=== PATIENT | female | born 1965 | race Caucasian/White ===

== ENCOUNTER 2016-11-16 15:57 | Emergency (ER) | payer MEDICAID, OTHER ==
[2016-11-16] MEDS ORDERED: Sodium Chloride 0.9% 1,000 ML IV ONE (16:09)
--- NOTE | 2016-11-16 16:09 | EDM.PDOC ---
ED HPI Trauma - General Chief Complaint: Lower Extremity Injury/Pain Stated Complaint: PT STATED SHE IS HAVING A STROKE Time Seen by Provider: 11/16/16 16:02 - History of Present Illness INITIAL COMMENTS - FREE TEXT/NARRATIVE: HISTORY AND PHYSICAL: History of present illness: Patient 51-year-old white female who presents with concern of general malaise they say she doesn't feel well and complains of multiple body aches and other nonspecific symptoms no reported fever chills nausea vomiting or other concerns she does acknowledge using alcohol recently because she was angry she denies suicidal or homicidal ideation Review of systems: As per history of present illness and below otherwise all systems reviewed and negative. Past medical history: As per history of present illness and as reviewed below otherwise noncontributory. Surgical history: As per history of present illness and as reviewed below otherwise noncontributory. Social history: No reported history of drug or alcohol abuse. Family history: As per history of present illness and as reviewed below otherwise noncontributory. Physical exam: HEENT: Atraumatic, normocephalic, pupils reactive, negative for conjunctival pallor or scleral icterus, mucous membranes moist, throat clear, neck supple, nontender, trachea midline. Lungs: Clear to auscultation, breath sounds equal bilaterally, chest nontender. Heart: S1S2, regular, negative for clicks, rubs, or JVD. Abdomen: Soft, nondistended, nontender. Negative for masses or hepatosplenomegaly. Negative for costovertebral tenderness. Pelvis: Stable nontender. Genitourinary: Deferred. Rectal: Deferred. Extremities: Atraumatic, negative for cords or calf pain. Neurovascular unremarkable. Neuro: Awake, alert, oriented. Cranial nerves II through XII unremarkable. Cerebellum unremarkable. Motor and sensory unremarkable throughout. Exam nonfocal. Diagnostics: CBC CMP troponin EtOH urine drug screen EKG CT brain chest x-ray Therapeutics: Normal saline 1 L bolus Impression: #1 general malaise #2 medical screening exam #3 rule out alcohol abuse Definitive disposition and diagnosis as appropriate pending reevaluation and review of above. Allergies/ADRs: Allergies thiamine (vitamin B1) [thiamine] Allergy (Verified 11/16/16 16:03) Redness Home Medications: Ambulatory Orders . [No Known Home Meds] 02/02/14 [Confirmed 09/01/15] Past Medical History - Past Health History Medical/Surgical History: Denies Medical/Surgical History Neurological History: Reports: Other (see below) Other Neuro History: CMT - Past Surgical History HEENT Surgical History: Reports: Tonsillectomy Other Musculoskeletal Surgeries/Procedures:: left foor surgery. right wrist surgery Social & Family History - Tobacco Use Smoking Status *Q: Current Every Day Smoker Years of Tobacco use: 37 Packs/Tins Daily: 0.5 Second Hand Smoke Exposure: Yes - Alcohol Use Days Per Week of Alcohol Use: 2 Number of Drinks Per Day: 3 Total Drinks Per Week: 6 - Recreational Drug Use Recreational Drug Use: No Review of Systems - Review of Systems Review Of Systems: ROS reveals no pertinent complaints other than HPI. Trauma Exam - Physical Exam Exam: See Below (See dictation) Course - Vital Signs Last Recorded V/S: Last Vital Signs Temp 36.6 C 11/16/16 16:10 Pulse 110 H 11/16/16 16:10 Resp 20 11/16/16 16:10 BP 148/60 H 11/16/16 16:10 Pulse Ox 97 11/16/16 16:10 - Orders/Labs/Meds Orders: Active Orders 24 hr Category Date Time Status EKG Documentation Completion [RC] STAT Care 11/16/16 16:03 Active COMPREHENSIVE METABOLIC PN,CMP [CHEM] Stat Lab 11/16/16 16:37 Received ETHANOL BLOOD MEDICAL [CHEM] Stat Lab 11/16/16 16:37 Received INR,PT,PROTHROMBIN TIME [COAG] Stat Lab 11/16/16 16:37 Received Sodium Chloride 0.9% [Normal Saline] 1,000 ml Med 11/16/16 16:09 Active IV STAT Medication Orders Sodium Chloride (Normal Saline) 1,000 mls @ 999 mls/hr IV STAT ONE Stop: 11/16/16 17:09 Last Admin: 11/16/16 16:34 Dose: 999 mls/hr Labs: Laboratory Tests 11/16/16 11/16/16 11/16/16 Range/Units 16:15 16:37 16:37 WBC 6.69 (4.0-11.0) K/uL RBC 4.61 (4.30-5.90) M/uL Hgb 14.2 (12.0-16.0) g/dL Hct 41.9 (36.0-46.0) % MCV 90.9 (80.0-98.0) fL MCH 30.8 (27.0-32.0) pg MCHC 33.9 (31.0-37.0) g/dL RDW Std Deviation 45.7 (28.0-62.0) fl RDW Coeff of Fani 14 (11.0-15.0) % Plt Count 252 (150-400) K/uL MPV 8.70 (7.40-12.00) fL Neut % (Auto) 60.7 (48.0-80.0) % Lymph % (Auto) 31.7 (16.0-40.0) % Snyder % (Auto) 6.1 (0.0-15.0) % Eos % (Auto) 0.9 (0.0-7.0) % Baso % (Auto) 0.6 (0.0-1.5) % Neut # (Auto) 4.1 (1.4-5.7) K/uL Lymph # (Auto) 2.1 (0.6-2.4) K/uL Snyder # (Auto) 0.4 (0.0-0.8) K/uL Eos # (Auto) 0.1 (0.0-0.7) K/uL Baso # (Auto) 0.0 (0.0-0.1) K/uL Nucleated RBC % 0.0 /100WBC Nucleated RBCs # 0 K/uL Troponin I < 0.10 (0.0-0.29) NG/ML Urine Opiates Screen NEGATIVE (NEGATIVE) Ur Oxycodone Screen NEGATIVE (NEGATIVE) Urine Methadone Screen NEGATIVE (NEGATIVE) Ur Barbiturates Screen NEGATIVE (NEGATIVE) Ur Phencyclidine Scrn NEGATIVE (NEGATIVE) Ur Amphetamine Screen NEGATIVE (NEGATIVE) U Methamphetamines Scrn NEGATIVE (NEGATIVE) U Benzodiazepines Scrn NEGATIVE (NEGATIVE) U Cocaine Metab Screen NEGATIVE (NEGATIVE) U Marijuana (THC) Screen POSITIVE (NEGATIVE) Meds: Medications Generic Name Dose Route Start Last Admin Trade Name Freq PRN Reason Stop Dose Admin Sodium Chloride 1,000 mls @ 999 mls/hr 11/16/16 16:09 11/16/16 16:34 Normal Saline IV 11/16/16 17:09 999 mls/hr STAT ONE Administration Departure - Departure Time of Disposition: 17:09 Disposition: Home, Self-Care 01 Condition: good Clinical Impression: Encounter for medical screening examination, Polysubstance abuse Forms: ED Department Discharge Additional Instructions: The following information is given to patients seen in the emergency department who are being discharged to home. This information is to outline your options for follow-up care. We provide all patients seen in our emergency department with a follow-up referral. The need for follow-up, as well as the timing and circumstances, are variable depending upon the specifics of your emergency department visit. If you don't have a primary care physician on staff, we will provide you with a referral. We always advise you to contact your personal physician following an emergency department visit to inform them of the circumstance of the visit and for follow-up with them and/or the need for any referrals to a consulting specialist. The emergency department will also refer you to a specialist when appropriate. This referral assures that you have the opportunity for followup care with a specialist. All of these measure are taken in an effort to provide you with optimal care, which includes your followup. Under all circumstances we always encourage you to contact your private physician who remains a resource for coordinating your care. When calling for followup care, please make the office aware that this follow-up is from your recent emergency room visit. If for any reason you are refused follow-up, please contact the [facility] emergency department at and asked to speak to the emergency department charge nurse. [facility] Specialty Care - Urology [address] [place] [address] [facility] Primary Care [address] [place] [address] Call to schedule routine appointment with primary care and neurology clinic for followup stop using alcohol marijuana and any other drugs return as needed as discussed - My Orders Last 24 Hours: My Active Orders 11/16/16 16:03 EKG Documentation Completion [RC] STAT 11/16/16 16:09 Sodium Chloride 0.9% [Normal Saline] 1,000 ml IV STAT 11/16/16 16:37 COMPREHENSIVE METABOLIC PN,CMP [CHEM] Stat ETHANOL BLOOD MEDICAL [CHEM] Stat INR,PT,PROTHROMBIN TIME [COAG] Stat - Assessment/Plan Last 24 Hours: My Active Orders 11/16/16 16:03 EKG Documentation Completion [RC] STAT 11/16/16 16:09 Sodium Chloride 0.9% [Normal Saline] 1,000 ml IV STAT 11/16/16 16:37 COMPREHENSIVE METABOLIC PN,CMP [CHEM] Stat ETHANOL BLOOD MEDICAL [CHEM] Stat INR,PT,PROTHROMBIN TIME [COAG] Stat
--- NOTE | 2016-11-16 16:49 | CT ---
EXAM DATE: 11/16/16 PATIENT'S AGE: 51 Patient: THONY PRYOR Facility: [place], [place] Site . Site : 1965 Study: CT Head [id number]/21/2017 4:31:09 PM Ordering Physician: Xi Carolina Final Report: INDICATION: Hx stroke, difficulty speaking, pain, "hearing zapping noise" Technique: Non-contrast head CT scan. Radiation dose reduction techniques applied. Findings: No abnormal foci of altered attenuation in the brain parenchyma. No midline shift or mass effect. No hydrocephalus. No abnormal extra-axial fluid collections. No abnormalities identified in the visualized portions of the skull and scalp. Mucus membrane thickening in the paranasal sinuses. Impression: No evidence of acute intracranial abnormalities. Dictated by: Shiva Bright MD @ 11/16/2016 16:39:16 (Electronic Signature) Report Signed by Proxy and Original Signed Document filed in the Medical Record. [facility]
--- NOTE | 2016-11-16 16:50 | CR ---
EXAM DATE: 11/16/16 PATIENT'S AGE: 51 Patient: THONY PRYOR Facility: [place], [place] Site . Site : 1965 Study: XRay Chest [id number]/21/2017 4:32:30 PM Ordering Physician: Xi Carolina Final Report: INDICATION: difficulty breathing FINDINGS: PA and lateral chest x-rays show a normal cardiac silhouette. The lungs show no focal pulmonary opacities. Sharp pleural margins. No pneumothorax. IMPRESSION: No evidence of acute pulmonary abnormalities. Dictated by Shiva Bright MD @ 11/16/2016 4:40:07 PM Dictated by: Shiva Bright MD @ 11/16/2016 16:40:19 (Electronic Signature) Report Signed by Proxy and Original Signed Document filed in the Medical Record. [facility]
[2016-11-16 17:16] LABS: CHLORIDE,CL 102 mmol/L (98-110); SODIUM,NA 136 mmol/L (136-146)
[2016-11-16 17:21] VITALS: BP 118/82
== END 2016-11-16 17:13 | disposition home or self-care (01) ==
LOC: MW.ED 15:57
DX: R53.81 Other malaise (principal); F19.10 Other psychoactive substance abuse, uncomplicated; F17.210 Nicotine dependence, cigarettes, uncomplicated
CPT/HCPCS: 36415; 70450; 71020; 80053; 80305; 84484; 85025; 85610; 93005; 99284; G0480; J7040; 99283